=== PATIENT | female | born 1950 | race Caucasian/White ===

== ENCOUNTER → 2021-01-11 | Outpatient (CLI) | payer MEDICARE | LOC: EMI 16:11 | DX: M47.26 Other spondylosis with radiculopathy, lumbar region (principal); M51.16 Intervertebral disc disorders with radiculopathy, lumbar region; M48.56XD Collapsed vertebra, not elsewhere classified, lumbar region, subsequent encounter for fracture with routine healing; I71.4 Abdominal aortic aneurysm, without rupture | CPT/HCPCS: 72148 ==

== ENCOUNTER → 2021-08-09 | Outpatient (CLI) | payer MEDICARE | LOC: MRI 12:10 | DX: M54.50 Low back pain, unspecified (principal); M48.56XA Collapsed vertebra, not elsewhere classified, lumbar region, initial encounter for fracture | CPT/HCPCS: 72158; 82565; 84520; A9577 ==